=== PATIENT | male | born 1995 | race African-American/Black ===

== ENCOUNTER 2016-08-26 07:28 | Emergency (ER) | payer OTHER ==
[2016-08-26 07:38] VITALS: BP 131/77
--- NOTE | 2016-08-26 07:59 | PROVIDER DOCUMENTATION ---
HPI-Musculoskeletal Pain/Inj - GENERAL Chief Complaint: Back Pain Stated Complaint: BACK PAIN Time Seen by Provider: 08/26/16 07:53 Source: patient - HX OF PRESENT ILLNESS-MUSKULOSKELTAL Nature of Presenting Problem: hurting in lower back on both sides of back no overuse no injury Quality of Pain: reports: aching, tightness Severity in ED: moderate Onset/Duration: 2 days ago Timing: still present, getting worse Any recent injury?: No Similar Symptoms Previously?: No Recently seen or treated by another doctor?: No - FALL INJURY Location of Pain/Injury: reports: back Pain Radiation: reports: no radiation Review of Systems - Adult - REVIEW OF SYSTEMS - ADULT Constitutional: denies: chills, fever Eyes: reports: no symptoms reported Ears, Nose, Mouth & Throat: reports: no symptoms reported Cardiovascular: reports: no symptoms reported Respiratory: reports: no symptoms reported Gastrointestinal: reports: no symptoms reported Genitourinary: reports: no symptoms reported Musculoskeletal: reports: back pain Integumentary: reports: no symptoms reported Neurological: reports: no symptoms reported Endocrine: reports: no symptoms reported Hematologic/Lymphatic: reports: no symptoms reported Allergic/Immunologic: reports: no symptoms reported Past History - Adult - PAST MEDICAL HISTORY-ADULT Review of Records: reports: Nursing Assessment Review, Medications Reviewed, Social history reviewed & non-contributory. Major Childhood Illnesses: reports: denies history Cardiovascular: reports: denies history Respiratory: reports: denies history Gastrointestinal: reports: denies history Genitourinary: reports: denies history Musculoskeletal: reports: denies history Neurological: reports: denies history Endocrine/Immune: reports: denies history Physical Exam-Injury Related - Physical Exam-Injury Related Initial Vital Signs Reviewed: Yes General Appearance: appears well, alert, no apparent distress Eyes: PERRL/EOMI Head, Ears, Nose, Mouth & Throat: normocephalic/atraumatic Neck: supple Respiratory: no respiratory distress Cardiovascular: regular rate, rhythm Abdominal Exam: soft Lymphatic: no adenopathy Back Exam: decreased range of motion, muscle spasm, vertebral tenderness Extremity: normal range of motion Integumentary: normal color Neurologic: grossly normal Psych/Mental Status: oriented x 3 Departure - Departure Time of Disposition Order: 08:01 DIAGNOSIS: Back ache Qualifiers: Back pain location: low back pain Chronicity: acute Back pain laterality: bilateral Sciatica presence: without sciatica Qualified Code(s): M54.5 - Low back pain Disposition: HOME 01 Certified Medical Emergency: Emergent Condition: Stable Additional Instructions: ED Follow Up Instructions: You have been treated by a care provider in the Emergency Department. These instructions are being provided to you so you can have an understanding of how to care for yourself upon discharge. Upon discharge from the Emergency Department, you are responsible for making arrangements for follow-up care by a physician of your choice. Take all prescribed medications as directed. Return to the Emergency Department immediately for any new or worsening symptoms. You may call the Physician Referral phone number at [phone] to obtain a list of Physicians who are taking new patients. Prescriptions: Acetaminophen with Codeine [Tylenol with Codeine #3 Tablet] 1 each PO Q6H PRN PRN #20 tablet PRN Reason: Pain Celecoxib [Celebrex] 200 mg PO BID PRN PRN #20 capsule PRN Reason: Pain
== END 2016-08-26 08:25 | disposition home or self-care (01) ==
LOC: P.ED 07:28
DX: M54.5 Low back pain (principal)
CPT/HCPCS: 99281